=== PATIENT | female | born 1985 | race Caucasian/White ===

== ENCOUNTER 2016-11-11 18:28 | Emergency (ER) | payer MEDICAID ==
[~2016-11-11] VITALS: Ht 162.6 cm; Wt 59.0 kg
[~2016-11-11 18:28] MED LIST: FERR325C PO; FOLI-49 PO; PRENAT PO
[2016-11-11 18:56] VITALS: Ht 162.6 cm; Wt 59.0 kg
[2016-11-11 20:41] LABS: ADD SCAN DIFF NO
[2016-11-11 20:42] LABS: BASOPHIL # 0.1 10^3/ul (0.0-0.1); BASOPHILS % 0.4 % (0.0-2.0); EOSINOPHILS # 0.2 10^3/ul (0.0-0.5); EOSINOPHILS % 1.7 % (0.0-7.0); HEMATOCRIT 37.9 % (37.0-47.0); HEMOGLOBIN 12.8 g/dl (12.0-16.0); LYMPHOCYTES # 4.4 10^3/ul (0.8-2.9); LYMPHOCYTES % 31.3 % (15.0-51.0); MEAN CORPUSCULAR HGB CONC 33.8 g/dl (32.0-37.0); MEAN CORPUSCULAR VOLUME 91.8 fl (82.0-101.0); MEAN PLATELET VOLUME 9.9 fl (7.4-10.4); MONOCYTE # 0.8 10^3/ul (0.3-0.9); NEUTROPHIL # 8.4 10^3/ul (1.6-7.5); NEUTROPHILS % 60.2 % (39.0-77.0); PLATELET COUNT 288 10^3/UL (140-415); RED BLOOD COUNT 4.13 10^6/ul (4.20-5.40); RED CELL DISTRIBUTION WIDTH 12.1 % (11.5-14.5); WHITE BLOOD COUNT 13.9 10^3/ul (4.8-10.8)
[2016-11-11 20:53] LABS: ADD UMIC YES; URINE BILIRUBIN (Dip) NEGATIVE (NEGATIVE); URINE BLOOD (Dip) 1+ (NEGATIVE); URINE COLOR LT. YELLOW (YELLOW); URINE GLUCOSE (Dip) NEGATIVE (NEGATIVE); URINE KETONES (Dip) NEGATIVE (NEGATIVE); URINE LEUKOCYTE ESTERASE (Dip) NEGATIVE (NEGATIVE); URINE NITRITE (Dip) NEGATIVE (NEGATIVE); URINE TOTAL PROTEIN (Dip) NEGATIVE (NEGATIVE); URINE UROBILINOGEN (Dip) 0.2 E.U./dL (0.1-1.0)
[2016-11-11 21:15] LABS: BACTERIA,URINE RARE; SQUAMOUS EPITHELIAL CELL,UR FEW
--- NOTE | 2016-11-11 21:46 | RADRPT ---
PROCEDURE: US Obstetric less than 14 weeks. CLINICAL INDICATION: , vaginal bleeding TECHNIQUE: Transabdominal and transvaginal imaging of the pelvis was performed. Images are review ed on a high-resolution PACS workstation. COMPARISON: None available FINDINGS: Single intrauterine gestation is identified. heart rate is 174 bpm. Axis-rump length = 4.23 cm. Gestational age is 11 weeks 1 day and EMEKA is 06/01/2017 by ultrasound criteria. Gestational age is 10 weeks 3 days and EMEKA is 06/06/2017 by LMP. Small subchorionic hemorrhage is incidentally noted. Bilateral ovaries are unremarkable. No ovarian torsion, adnexal mass or pelvic free fluid is seen. IMPRESSION: 1. Single live intrauterine with an estimated gestational age of 11 weeks 1 day by ultras ound criteria, as above. Small subchorionic hemorrhage is incidentally noted. RPTAT: HDWR .Davie Richardson MD, MD Date Time Electronically viewed and signed by .Davie Richardson MD, on 11/11/2016 21:45 .R/
--- NOTE | 2016-11-11 22:47 | ERD ---
ER Documentation Chief Complaint Date/Time DATE: 11/11/16 TIME: 22:46 Chief Complaint 6 wks pregnanr, vag bleeding x 3 days HPI Very pleasant 31-year-old female who is a at approximately 8 weeks who presents with vaginal spotting over the weekend. She describes mild abdominal cramping that feels like a mild., She denies any fevers or chills, dysuria urgency or frequency. No significant gush of fluid or clots. ROS All systems reviewed and are negative except as per history of present illness. Medications Home Meds Reported Medications Multivit/Min/Fol Ac/Iron/Pren* ( S*) 1 Tab Tab, 1 TAB PO DAILY, TAB 03/23/15 Ferrous Sulfate (Iron) 325 Mg Capsr, 325 MG PO DAILY 03/23/15 Folic Acid* (Folic Acid*) 1 Mg Tablet, 1 MG PO DAILY, TAB 03/23/15 Allergies Allergies: Coded Allergies: No Known Allergy (Unverified , 03/23/15) PMhx/Soc Medical and Surgical Hx: pt denies Medical Hx, pt denies Surgical Hx History of Surgery: No Anesthesia Reaction: No Hx Neurological Disorder: No Hx Respiratory Disorders: No Hx Cardiac Disorders: No Hx Psychiatric Problems: No Hx Miscellaneous Medical Probl: No Hx Alcohol Use: No Hx Substance Use: No Hx Tobacco Use: No Smoking Status: Never smoker FmHx Family History: No diabetes Physical Exam Vitals Vital Signs Date Time Temp Pulse Resp B/P Pulse Ox O2 Delivery O2 Flow Rate FiO2 11/11/16 18:56 98.6 72 20 122/70 100 Physical Exam General: Well developed, well nourished, no acute distress Head: Normocephalic, atraumatic. Eyes: Pupils equally reactive, EOM intact ENT: Moist mucous membranes Neck: Supple, no lymphadenopathy Respiratory: Lungs clear bilaterally, no distress Cardiovascular: RRR, no murmurs, rubs, or gallops Abdominal: Soft, non-tender, non-distended, no peritoneal signs : Deferred MSK: No edema, no unilateral swelling, 5/5 strength Neurologic: Alert and oriented, moving all extremities, normal speech, no focal weakness, no cerebellar signs Skin: No rash Psych: Normal mood Result Diagram: 11/11/16 2018 Results 24 hrs Laboratory Tests Test 11/11/16 20:18 White Blood Count 13.910^3/ul Red Blood Count 4.1310^6/ul Hemoglobin 12.8g/dl Hematocrit 37.9% Mean Corpuscular Volume 91.8fl Mean Corpuscular Hemoglobin 31.0pg Mean Corpuscular Hemoglobin Concent 33.8g/dl Red Cell Distribution Width 12.1% Platelet Count 69632^3/UL Mean Platelet Volume 9.9fl Neutrophils % 60.2% Lymphocytes % 31.3% Monocytes % 6.0% Eosinophils % 1.7% Basophils % 0.4% Nucleated Red Blood Cells % 0.0/100WBC Neutrophils # 8.410^3/ul Lymphocytes # 4.410^3/ul Monocytes # 0.810^3/ul Eosinophils # 0.210^3/ul Basophils # 0.110^3/ul Nucleated Red Blood Cells # 0.010^3/ul Urine Color LT. YELLOW Urine Clarity CLEAR Urine pH 6.0 Urine Specific [place] 1.015 Urine Ketones NEGATIVE Urine Nitrite NEGATIVE Urine Bilirubin NEGATIVE Urine Urobilinogen 0.2 E.U./dL Urine Leukocyte Esterase NEGATIVE Urine Microscopic RBC 2-5/HPF Urine Microscopic WBC NONE SEEN/HPF Urine Squamous Epithelial Cells FEW Urine Bacteria RARE Urine Hemoglobin 1+ Urine Glucose NEGATIVE% Urine Total Protein NEGATIVE Beta HCG, Quantitative 62110.0mIU/ml Procedures/MDM EKG, MONITORS, & DIAGNOSTIC IMAGING: Pelvic ultrasound: IMPRESSION: 1. Single live intrauterine with an estimated gestational age of 11 weeks 1 day by ultrasound criteria, as above. Small subchorionic hemorrhage is incidentally noted. RPTAT: HDWR LAB INTERPRETATION: Serum hC,000 Rh status: O+ MEDICAL DECISION MAKING: The patient's symptoms are most consistent with acute threatened miscarriage. She exhibits no signs or symptoms concerning for acute ectopic however this needs to be evaluated here in the emergency room and be ruled out. In addition I doubt other acute intra-abdominal process such as ovarian cyst, ovarian torsion, acute appendicitis, colitis, kidney stone, acute pancreatitis or acute cholecystitis. The patient will require further evaluation, laboratory testing and diagnostic imaging to evaluate and rule out acute ectopic . Patient will also require prompt outpatient SALON MANAGER follow-up. We discussed this at the bedside. We had an in-depth conversation regarding the diagnosis of threatened miscarriage, the prevalence of this process, the expected management as well as return precautions. ER COURSE: The patient has a confirmed IUP. The patient was educated on parent miscarriage. Repeat hCG in 2-3 days through SALON MANAGER. Resources provided. I kept the patient and/or family informed of laboratory and diagnostic imaging results throughout the emergency room course. DISPOSITION PLAN: We discussed follow up with the patient's primary care doctor within 24 to 48 hours as needed. We also discussed return to the emergency room for worsening symptoms or worsening condition. Close outpatient SALON MANAGER follow-up for repeat hCG value in 2-3 days and ultrasound as needed. Discharge medications: None required Departure Diagnosis: Primary Impression: Threatened miscarriage Condition: Stable Patient Instructions: Possible Miscarriage (Threatened ) Referrals: [facility] Usted se goff hecho un examen mdico de control que le indica que no est en juan jose condicin que requiera tratamiento urgente en el Departamento de Emergencia. Un estudio ms profundo y el tratamiento de stephenson condicin pueden esperar sin ningn riesgo hasta que usted sea atendida/o en el consultorio de stephenson mdico o juan jose cl deshawn. Es responsabilidad suya arreglar juan jose christine para el seguimiento del sammy. MANEJO DE CONDICIONES NO URGENTES EN EL FUTURO 1) Si usted tiene un mdico de atencin primaria: Usted debera llamar a stephenson mdico de atencin primaria antes de venir al departamento de emergencia. Despus de las horas de consultorio, stephenson doctor o stephenson asociado/a est disponible por telfono. El mdico o enfermero de eulalia en el servicio telefnico puede asesorarle por tammi medio para atender el problema, o sammy contrario se puede programar juan jose christine. 2) Si usted no tiene un mdico de atencin primaria: Llame al mdico o clnica de referencia que aparece abajo brandie las horas de consultorio para hacer juan jose christine para que le vean. CLINICAS: [facility] 024 [phone] [facility] [phone] [facility] [phone] [place] [address] [phone] [facility] [phone] [address] [facility] [phone] [facility] () Usted se goff hecho un examen mdico de control que le indica que no est en juan jose condicin que requiera tratamiento urgente en el Departamento de Emergencia. Un estudio ms profundo y el tratamiento de stepehnson condicin pueden esperar sin ningn riesgo hasta que usted sea atendida/o en el consultorio de stephenson mdico o juan jose cl deshawn. Es responsabilidad suya arreglar juan jose christine para el seguimiento del sammy. MANEJO DE CONDICIONES NO URGENTES EN EL FUTURO 1) Si usted tiene un mdico de atencin primaria: Usted debera llamar a stephenson mdico de atencin primaria antes de venir al departamento de emergencia. Despus de las horas de consultorio, stephenson doctor o stephenson asociado/a est disponible por telfono. El mdico o enfermero de eulalia en el servicio telefnico puede asesorarle por tammi medio para atender el problema, o sammy contrario se puede programar juan jose christine. 2) Si usted no tiene un mdico de atencin primaria: Llame al mdico o condado institucions de referencia que aparece abajo brandie las horas de consultorio para hacer juan jose christine para que le vean. SI USTED NO PUEDE PAGAR PARA MYNOR UN MEDICO puede ir a: [facility] [address] [place] [address] [facility] [address] [place] [address] [facility] [address] [place] [address] [facility] [address] [place], [place] [id number] SALON MANAGER [place] [address] [facility] [address] [place] [address] OFFICE FAX , [facility] [address] [place] [address] DR. MACIAS, [place] [address] [place] [address] [address] BURGOS, [facility] [address] [facility], [address], [facility] [address] [address]AM, [facility] [address] [place] [address] [facility] [address] [place] [address] [address] [facility] [address] - [address] JOLLEY KATIE [address] [facility]. [address], [facility] [address] [address] MALDONADO, [facility] [address] [facility], [facility] [address] [address] FUENTES, [facility] [address] [place], [place] [id number] Additional Instructions: Call your primary care doctor TOMORROW for an appointment during the next 2-3 days.See the doctor sooner or return here if your condition worsens before your appointment time. Repeat HCG in 2-3 days via SALON MANAGER. DANICA SHARMA MD Nov 11, 2016 22:47
== END 2016-11-11 22:55 | disposition home or self-care (01) ==
LOC: FTE 18:28
DX: O20.0 Threatened abortion (principal); Z3A.11 11 weeks gestation of pregnancy
CPT/HCPCS: 36415; 76801; 81001; 84702; 85025; 86900; 86901; Z7502; 81003

== ENCOUNTER 2016-12-22 20:34 | Emergency (ER) | payer MEDICAID ==
[~2016-12-22] VITALS: Ht 152.4 cm; Wt 61.0 kg
[2016-12-22 20:36] VITALS: Ht 152.4 cm; Wt 61.0 kg
--- NOTE | 2016-12-22 20:56 | ERA ---
ER Documentation Chief Complaint Date/Time DATE: 12/22/16 TIME: 20:56 Chief Complaint Pelvic pain HPI The patient is a 31-year-old female, presenting to the ER because she feels as if she had contractions for approximately 20 minutes at about 6 PM tonight. She is 15 weeks , denies any vaginal bleeding or vaginal discharge, denies fever, chills, neck pain, chest pain, dyspnea, abdominal pain, vomiting, dysuria, diarrhea. She is 3 para 1 1, does not smoke nor drink Past medical history: None Past surgical history: Rhinoplasty, liposuction ROS All systems reviewed and are negative except as per history of present illness. Medications Home Meds Reported Medications Multivit/Min/Fol Ac/Iron/Pren* ( S*) 1 Tab Tab, 1 TAB PO DAILY, TAB 03/23/15 Ferrous Sulfate (Iron) 325 Mg Capsr, 325 MG PO DAILY 03/23/15 Folic Acid* (Folic Acid*) 1 Mg Tablet, 1 MG PO DAILY, TAB 03/23/15 Allergies Allergies: Coded Allergies: No Known Allergy (Unverified , 03/23/15) PMhx/Soc History of Surgery: No Anesthesia Reaction: No Hx Neurological Disorder: No Hx Respiratory Disorders: No Hx Cardiac Disorders: No Hx Psychiatric Problems: No Hx Miscellaneous Medical Probl: No Hx Alcohol Use: No Hx Substance Use: No Hx Tobacco Use: No Physical Exam Vitals Vital Signs Date Time Temp Pulse Resp B/P Pulse Ox O2 Delivery O2 Flow Rate FiO2 12/22/16 23:56 98.9 68 22 110/67 99 Room Air 12/22/16 20:36 98.5 104 20 119/57 97 Physical Exam Const: No acute distress. Head: Atraumatic. Eyes: Normal Conjunctiva. ENT: Normal External Ears, Nose and Mouth. Neck: Full range of motion. No meningismus. Resp: Clear to auscultation bilaterally. Cardio: Regular rate and rhythm, no murmurs. Abd: Soft, gravid, normal bowel sounds, minimal suprapubic discomfort, no rigidity, rebound, CVA tenderness Skin: No petechiae or rashes. Back: No midline or flank tenderness. Ext: No cyanosis, or edema. Neur: Awake and alert. No focal deficit Psych: Normal Mood and Affect. Result Diagram: 12/22/162119 Results 24 hrs Laboratory Tests Test 12/22/16 21:13 12/22/16 21:20 Bedside Urine pH (LAB) 7.0 Bedside Urine Protein (LAB) Negative Bedside Urine Glucose (UA) Negative Bedside Urine Ketones (LAB) 2+ Bedside Urine Blood 1+ Bedside Urine Nitrite (LAB) Negative Bedside Urine Leukocyte Esterase (L Negative White Blood Count 13.810^3/ul Red Blood Count 3.9110^6/ul Hemoglobin 12.2g/dl Hematocrit 35.2% Mean Corpuscular Volume 90.0fl Mean Corpuscular Hemoglobin 31.2pg Mean Corpuscular Hemoglobin Concent 34.7g/dl Red Cell Distribution Width 12.6% Platelet Count 94472^3/UL Mean Platelet Volume 10.1fl Neutrophils % 67.1% Lymphocytes % 25.5% Monocytes % 4.7% Eosinophils % 2.1% Basophils % 0.2% Nucleated Red Blood Cells % 0.0/100WBC Neutrophils # 9.310^3/ul Lymphocytes # 3.510^3/ul Monocytes # 0.710^3/ul Eosinophils # 0.310^3/ul Basophils # 0.010^3/ul Nucleated Red Blood Cells # 0.010^3/ul Beta HCG, Quantitative 78804.0mIU/ml Current Medications Medications (Trade) Dose Ordered Sig/Ronn Route PRN Reason Start Time Stop Time Status Last Admin Dose Admin Acetaminophen 650 mg 650 mg ONCE ONCE PO 12/22/16 21:30 12/22/16 21:31 DC 12/22/16 21:11 Sodium Chloride (NS) 1,000 ml @ 1,000 mls/hr Q1H ONCE IV 12/22/16 21:30 12/22/16 22:29 DC 12/22/16 21:19 Procedures/[place] [address] Radiology Main Line: [phone] DIAGNOSTIC IMAGING REPORT Patient: JACOB SHANE : 1985 Age: 31 Sex: F MR #: [id number] DOS: 12/22/162102 Ordering MD: CURTIS ADLER MD Location: FTE Room/Bed: PROCEDURE: US OB. US OB Transabd 1St Tri CLINICAL INDICATION: Vaginal Bleed () TECHNIQUE: Multiple sonographic images of the pelvis were obtained. The images were reviewed on a PACS workstation. COMPARISON: No prior studies are available for comparison. FINDINGS: There is a single viable intrauterine gestation. Cardiac activity is present with 150 beats per minute. There is a vertex presentation. Measurements were made in order to determine age. The results are as follows: BPD = 3.6 cm. HC = 4.5 cm. AC = 10.4 cm. FL = 2.1 cm. Estimated gestational age of approximately 16 weeks and 4 days. The estimated date of delivery is 06/04/2017. Estimated delivery date by last menstrual period is 06/06/2017. The EFW = 154 grams . The placenta is fundal, grade 0. There is no evidence for an abruption or placenta previa. There is a normal appearing amount of amniotic fluid. IMPRESSION: Single viable intrauterine gestation of approximately 16 weeks and 4 days. The estimated date of delivery is 06/04/2017 . RPTAT: HBST .Stanley Merino MD, MD Date Time Electronically viewed and signed by .Stanley Merino MD, MD on 12/22/2016 23:31 .T/ CC: CURTIS ADLER MD MEDICAL MAKING DECISION: The patient is a 31-year-old female, presenting with acute pelvic pain of unclear etiology, acute dehydration. She was treated with 1 L normal saline for clinical dehydration and Tylenol 650 mg p.o. for headache with good response. On multiple reevaluation, she felt better. The differential diagnoses considered include but are not limited to threatened/ incomplete/inevitable/complete , ectopic , non- related bleeding, ovarian cyst, ovarian torsion, PID, cystitis. Departure Diagnosis: Primary Impression: Acute pain in female pelvis Additional Impression: Dehydration Condition: Good Comments I discussed the findings with the patient. I advised the patient to follow-up with the primary physician in about 1-2 days, sooner if needed and return if any concern. CURTIS ADLER MD December 22, 2016 20:56
[2016-12-22 21:10] LABS: URINE BLOOD (Dip) POC 1+ (NEGATIVE)
[2016-12-22 21:29] LABS: ADD SCAN DIFF NO
[2016-12-22 21:30] LABS: BASOPHILS % 0.2 % (0.0-2.0); EOSINOPHILS # 0.3 10^3/ul (0.0-0.5); EOSINOPHILS % 2.1 % (0.0-7.0); HEMATOCRIT 35.2 % (37.0-47.0); HEMOGLOBIN 12.2 g/dl (12.0-16.0); LYMPHOCYTES # 3.5 10^3/ul (0.8-2.9); LYMPHOCYTES % 25.5 % (15.0-51.0); MEAN CORPUSCULAR HEMOGLOBIN 31.2 pg (29.0-33.0); MEAN CORPUSCULAR HGB CONC 34.7 g/dl (32.0-37.0); MEAN PLATELET VOLUME 10.1 fl (7.4-10.4); MONOCYTE # 0.7 10^3/ul (0.3-0.9); MONOCYTES % 4.7 % (0.0-11.0); NEUTROPHIL # 9.3 10^3/ul (1.6-7.5); NEUTROPHILS % 67.1 % (39.0-77.0); PLATELET COUNT 251 10^3/UL (140-415); RED BLOOD COUNT 3.91 10^6/ul (4.20-5.40); RED CELL DISTRIBUTION WIDTH 12.6 % (11.5-14.5); WHITE BLOOD COUNT 13.8 10^3/ul (4.8-10.8)
[2016-12-22] MEDS ORDERED: ACETAMINOPHEN 325 MG TAB PO ONE (21:30)
[2016-12-22] MEDS ORDERED: SOD CHLORIDE 0.9% 1,000 ML IV ONE (21:30)
--- NOTE | 2016-12-22 23:32 | RADRPT ---
PROCEDURE: US OB. US OB Transabd 1St Tri CLINICAL INDICATION: Vaginal Bleed () TECHNIQUE: Multiple sonographic images of the pelvis were obtained. The images were reviewed on a PACS workstation. COMPARISON: No prior studies are available for comparison. FINDINGS: There is a single viable intrauterine gestation. Cardiac activity is present with 150 beats per min kashia. There is a vertex presentation. Measurements were made in order to determine age. The results are as follows: BPD =3.6 cm. HC =4.5 cm. AC =10.4 cm. FL =2.1 cm. Estimated gestational age of approximately 16 weeks and 4 days. The estimated date of delivery is 06/04/2017. Estimated delivery date by last menstrual period is 08/06/2016. The EFW = 154 grams . The placenta is fundal, grade 0. There is no evidence for an abruption or placenta previa. There is a normal appearing amount of amniotic fluid. IMPRESSION: Single viable intrauterine gestation of approximately 16 weeks and 4 days. The estimated date of de livery is 06/04/2017 . RPTAT: HBST .Stanley Merino MD, MD Date Time Electronically viewed and signed by .Stanley Merino MD, MD on 12/22/2016 23:31 .T/
[2016-12-22 23:56] VITALS: BP 110/67; PULSE 68; RESP 22; TEMP 98.9
== END 2016-12-22 23:57 | disposition home or self-care (01) ==
LOC: FTE 20:34
DX: O26.892 Other specified pregnancy related conditions, second trimester (principal); R10.2 Pelvic and perineal pain; E86.0 Dehydration; O99.282 Endocrine, nutritional and metabolic diseases complicating pregnancy, second trimester; Z3A.16 16 weeks gestation of pregnancy
CPT/HCPCS: 76801; 81003; 84702; 85025; 86900; 86901; J7030; Z7610; 36415

== ENCOUNTER 2017-11-12 08:40 | Emergency (ER) | END 2017-11-12 10:26 | disposition home or self-care (01) ==

== ENCOUNTER 2019-01-28 19:33 | Emergency (ER) | payer MEDICAID ==
[~2019-01-28] VITALS: Ht 157.5 cm; Wt 61.1 kg
[~2019-01-28 19:33] MED LIST changes: +IBUP-1542 PO
[2019-01-28 19:51] VITALS: Ht 157.5 cm; Wt 61.1 kg
[2019-01-29] MEDS ORDERED: IBUP-1542 PO (01:30)
[2019-01-29] MEDS ORDERED: HYDR-4011 PO (01:30)
[2019-01-29 01:48] VITALS: BP 113/71; PULSE 67; RESP 18
--- NOTE | 2019-01-29 08:27 | ERD ---
ER Documentation Chief Complaint Chief Complaint PELVIC PAIN X 6 DAYS. HPI 33 year old F presents w/ intermittent right sided pelvic pain x 6 days. Pain was progressively worse today, prompting her visit. Pain is worse w/ direct palpation. Pain is described as sharp and 8/10 in intensity. No pain medications were taken prior to arrival. She denies any vaginal bleeding, discharge, urinary frequency, urgency or dysuria. No back/flank pain. No fevers or chills. Pt is sexually active w/ her . Periods have been irregular, currently on the Nexplanon. ROS All systems reviewed and are negative except as per history of present illness. Medications Home Meds Active Scripts Hydrocodone/Acetaminophen (Rulo 5-325 Tablet) 1 Each Tablet, 1 TAB PO Q6H PRN for PAIN, #7 TAB Prov:BETTIEIGRIKIANGEMMA PA-C 01/29/19 Ibuprofen* (Motrin*) 600 Mg Tab, 600 MG PO Q6H PRN for PAIN AND OR ELEVATED TEMP, #30 TAB Prov:GEMMA BEAR PA-C 01/29/19 Ibuprofen* (Motrin*) 600 Mg Tab, 600 MG PO Q6, #30 TAB Prov:ANA MARIA MCKEON PA-C 11/12/17 Reported Medications Multivit/Min/Fol Ac/Iron/Pren* ( S*) 1 Tab Tab, 1 TAB PO DAILY, TAB 03/23/15 Ferrous Sulfate (Iron) 325 Mg Capsr, 325 MG PO DAILY 03/23/15 Folic Acid* (Folic Acid*) 1 Mg Tablet, 1 MG PO DAILY, TAB 03/23/15 Allergies Allergies: Coded Allergies: No Known Allergy (Unverified , 11/12/17) PMhx/Soc History of Surgery: Yes (rhinoplasty, liposuction) Anesthesia Reaction: No Hx Neurological Disorder: No Hx Respiratory Disorders: No Hx Cardiac Disorders: No Hx Psychiatric Problems: No Hx Miscellaneous Medical Probl: No Hx Alcohol Use: No Hx Substance Use: No Hx Tobacco Use: No Smoking Status: Never smoker Physical Exam Vitals Vital Signs Date Temp Pulse Resp B/P (MAP) Pulse Ox O2 O2 Flow FiO2 Time Delivery Rate 01/29/19 98.0 67 18 113/71 98 Room Air 01:48 (85) 01/28/19 98.0 89 20 103/52 99 19:51 (69) Physical Exam Const: No acute distress Head: Atraumatic Eyes: Normal Conjunctiva ENT: Normal External Ears, Nose and Mouth. Neck: Full range of motion. No meningismus. Resp: Clear to auscultation bilaterally Cardio: Regular rate and rhythm, no murmurs Abd: Soft,+ mild TTP of the right pelvic area, no rebound, no guarding, neg mcburney's, neg yates's. non distended. Normal bowel sounds Skin: No petechiae or rashes Back: No midline or flank tenderness Ext: No cyanosis, or edema Neur: Awake and alert Psych: Normal Mood and Affect Results 24 hrs Laboratory Tests Test 01/28/19 21:22 Urine Color COLORLESS Urine Clarity CLEAR Urine pH 7.0 Urine Specific [place] 1.001 Urine Ketones NEGATIVE mg/dL Urine Nitrite NEGATIVE mg/dL Urine Bilirubin NEGATIVE mg/dL Urine Urobilinogen NEGATIVE mg/dL Urine Leukocyte Esterase NEGATIVE Rosy/ul Urine Hemoglobin NEGATIVE mg/dL Urine Glucose NEGATIVE mg/dL Urine Total Protein NEGATIVE mg/dl Urine Test NEGATIVE Procedures/MDM LABS & DIAGNOSTIC IMAGING: Urine: neg for pyuria, hematuria or infection uhcg: neg PROCEDURES: PROCEDURE: US Non-OB Pelvis. CLINICAL INDICATION: Pelvic pain. TECHNIQUE: Multiple sonographic images of the pelvis were obtained utilizing a transabdominal and endovaginal technique. The images were reviewed on a PACS workstation. COMPARISON: 12/22/2016. FINDINGS: The uterus is visualized and measures 8.2 x 4.0 x 5.3 cm. The endometrial echo complex is normal and measures 6 mm. Two fibroids in the uterine fundus measure up to 1.0 cm. The right ovary measures 6.5 x 5.3 x 6.1 cm. There is a 6.1 cm simple right ovarian cyst. The left ovary measures 2.8 x 2.0 x 2.1 cm. Blood flow is demonstrated to both ovaries. No adnexal masses are noted. There is a trace volume of free fluid in the pelvic cul-de-sac. IMPRESSION: 6.1 cm simple right ovarian cyst. There is no evidence of ovarian torsion at this time. Normal appearance of the left ovary. Two fibroids in the uterine fundus measuring up to 1.0 cm MEDICAL DECISION MAKING: This is a 33-year-old female who presents w/ right pelvic pain. UA is negative for infection. Ultrasound reveals a 6.1 cm simple ovarian cyst, likely the source of her pain. No evidence of ovarian torsion or rupture on imaging. Pt's vital signs are stable, no evidence of hemodynamic compromise. I discussed this case w/ OBGYN aircraft load controller, who states pt can be followed as outpatient. Pt did not have significant pain on my evaluation. She will be d/c home w/ Ibuprofen, norco and OBGYN follow up. Discussed importance of close monitoring given size of cyst, pt understands. Strict return precautions were discussed. PRESCRIPTIONS: Ibuprofen, Rulo SPECIALIST FOLLOW UP RECOMMENDED: OBGYN Departure Diagnosis: Primary Impression: Right ovarian cyst Condition: Stable Patient Instructions: Ovarian Cyst Referrals: MOBILE PARAMEDICAL EXAMINER [place] [address] [facility] [address] [place] [address]ABUSLEME [facility] [address] [place] [address] [facility] [address] [place] [address] [address]URG[address] [facility] [address] [facility] [address] [address] [facility] [address] [place] [address] [facility] [address] [place] [address] [facility] [address] - KATIE [address], [facility] [address] [address] [address] [facility]. [address], [facility] [address] [address] [address] [place] [address] Additional Instructions: You must see your MOBILE PARAMEDICAL EXAMINER for further evaluation of your ovarian cyst. He can take copies of this ultrasound with you. Paciente aconseja volver a Departamento de urgencias inmediatamente para sntomas nuevos o que empeoran . Paciente aconseja posteriores con el PCP en 1-2 melendez. Si el paciente no tiene ninguna de atencin primaria pueden seguir con [facility] [address] [place] [address] o [facility] + [address] [address] GEMMA BEAR PA-C Jan 29, 2019 08:26
== END 2019-01-29 01:48 | disposition home or self-care (01) ==
LOC: FTE 19:33
DX: N83.201 Unspecified ovarian cyst, right side (principal)
CPT/HCPCS: 76830; 76856; 81003; 84703